=== PATIENT | female | born 1965 | race American Indian/Alaskan Native ===

== ENCOUNTER 2017-02-21 10:55 | Outpatient (CLI) | payer BC ==
--- NOTE | 2017-02-21 13:39 | XRay Report ---
XRAY LEFT HIP 2 VIEWS: 02/21/17 10:55:00 CLINICAL: Pain the left hip for three days. FINDINGS: Mild superior acetabular eburnation with narrowing of the joint space. Similar changes in the right hip. No fracture or dislocation. Osteitis pubis but otherwise intact pelvic bones. The SI joints are normal. Normal soft tissues. IMPRESSION: Mild bilateral hip osteoarthritis. Osteitis pubis.
== END 2017-02-21 10:56 | disposition home or self-care (01) ==
LOC: SPVIMAG 10:55
DX: M16.0 Bilateral primary osteoarthritis of hip (principal); M86.8X8 Other osteomyelitis, other site

== ENCOUNTER 2017-02-26 15:12 | Outpatient (CLI) | payer BC ==
--- NOTE | 2017-02-26 16:33 | XRay Report ---
AP AND LATERAL LUMBOSACRAL SPINE: History: Low back pain. The vertebral bodies are well mineralized and normal in alignment and vertebral height with well preserved interspace distances. The visualized portions of the posterior elements are normal. IMPRESSION: Normal study.
== END 2017-02-26 15:13 | disposition home or self-care (01) ==
LOC: SPVIMAG 15:12
DX: M54.5 Low back pain (principal)
CPT/HCPCS: 72100

== ENCOUNTER 2017-03-25 15:38 | Outpatient (CLI) | payer BC ==
--- NOTE | 2017-03-25 16:40 | Mammography Report ---
BILATERAL MAMMOGRAM: FINDINGS: The breast tissue is heterogeneously dense, which could obscure detection of small masses (approximately 50%-75% glandular). No mass, distortion, suspicious calcification, or skin change is seen. No interval change compared to prior exams dating back to 2015. CAD was utilized. IMPRESSION: Negative mammogram. There is no mammographic evidence of malignancy. RECOMMENDATION: Follow-up per ACS guidelines. BI-RADS CATEGORY: 1 = Negative ACR BI-RADS MAMMOGRAPHIC CODES: 0 = Needs additional imaging evaluation; 1 = Negative; 2 = Benign; 3 = Probably benign; 4 = Suspicious; 5 = Malignant; 6 = Known biopsy-proven malignancy COMMENT: 1. Dense breast tissue, i.e., adenosis, fibrocystic changes, etc., may obscure an underlying neoplasm. 2. Approximately 10% of cancers are not detected with mammography. 3. A negative mammography report should not delay biopsy if a clinically suspicious mass is present. COMMENT: Patient follow-up letters are generated in [email or web address].
== END 2017-03-25 15:39 | disposition home or self-care (01) ==
LOC: SPVWC 15:38
DX: Z12.31 Encounter for screening mammogram for malignant neoplasm of breast (principal)
CPT/HCPCS: 77067; G0202

== ENCOUNTER 2018-08-11 09:53 | Outpatient (CLI) | payer BC ==
--- NOTE | 2018-08-11 15:26 | Mammography Report ---
BILATERAL DIGITAL SCREENING MAMMOGRAM with CAD: 08/11/18 09:53:00 CLINICAL: Routine screening. COMPARISON:03/25/17 FINDINGS: The breasts are heterogeneously dense, which may obscure small masses. No mass, architectural distortion or suspicious calcifications. IMPRESSION: No mammographic evidence of malignancy. BI-RADS CATEGORY: 1 - - Negative RECOMMENDATION: Routine mammographic screening in one year. COMMENT: Patient follow-up letters are generated by our [email or web address] application.
== END 2018-08-11 09:54 | disposition home or self-care (01) ==
LOC: SPVWC 09:53
DX: Z12.31 Encounter for screening mammogram for malignant neoplasm of breast (principal)
CPT/HCPCS: 77067